=== PATIENT | female | born 1980 | race Caucasian/White ===

== ENCOUNTER 2018-09-15 22:17 | Emergency (ER) | payer SELFPAY, OTHER ==
[2018-09-16] MEDS: IPRATROPIUM (NEB) 0.5 MG/2.5 ML AMP INH (00:13)
[2018-09-16] MEDS: ALBUTEROL 0.5% (NEB) 2.5 MG/0.5 ML AMP INH (00:13)
[2018-09-16] MEDS: METHYLPREDNISOLONE 125 MG INJ IM (00:16)
[2018-09-16] MEDS: ALBUTEROL 0.083% (NEB) 2.5 MG/3 ML AMP HHN (01:27)
== END 2018-09-16 03:21 | disposition home or self-care (01) ==
LOC: FTE 22:17
DX: J45.901 Unspecified asthma with (acute) exacerbation (principal)
CPT/HCPCS: 94644; 94645; 96372; 99284-25